=== PATIENT | female | born 1995 | race African-American/Black ===

== ENCOUNTER 2019-04-16 20:53 | Emergency (ER) | payer MEDICAID ==
[~2019-04-16] VITALS: Ht 149.9 cm; Wt 59.0 kg
[2019-04-16] MEDS ORDERED: SODIUM CHLORIDE 0.9% 1,000 ML IV ONE (21:42)
[2019-04-16] MEDS ORDERED: MORPHINE SULFATE 4 MG/ML CPJ (NOT FOR IM USE) IV STA (21:42)
[2019-04-16] MEDS ORDERED: ONDANSETRON HCL 4MG/2ML INJ IV STA (21:42)
[2019-04-16 23:31] VITALS: BP 145/78
[2019-04-17 00:33] LABS: BASOPHILS % 0.7 % (0.0-2.0); EOSINOPHILS % 2.8 % (0.0-5.0); HEMATOCRIT. 34.8 % (36.0-48.0); HEMOGLOBIN. 11.8 g/dL (12.0-16.0); LYMPHOCYTES % 27.2 % (20.0-50.0); MEAN CORPUSCULAR HEMOGLOBIN 33.2 pg (28.0-32.0); MEAN CORPUSCULAR VOLUME 98.1 fL (81.0-99.0); MEAN PLATELET VOLUME 8.4 fl (7.4-10.4); MONOCYTES % 9.4 % (2.0-8.0); NEUTROPHILS % 59.9 % (40.0-76.0); PLATELET 261 x1000/uL (130-400); RED BLOOD CELL COUNT 3.55 mill/uL (4.2-5.4); RED CELL DISTRIBUTION WIDTH 12.9 % (11.6-14.6)
[2019-04-17 00:34] LABS: CLARITY URINE CLEAR (CLEAR); COLOR URINE YELLOW (YELLOW); KETONES URINE NEGATIVE (NEGATIVE); LEUKOCYTE ESTERASE URINE 1+ (NEGATIVE); NITRITE URINE NEGATIVE (NEGATIVE); OCCULT BLOOD URINE NEGATIVE (NEGATIVE); PH URINE 6.5 (4.5-8.0); PROTEIN URINE NEGATIVE (NEGATIVE); SPECIFIC GRAVITY URINE 1.024 (1.005-1.030)
[2019-04-17 00:44] LABS: CHLORIDE 108 mEq/L (98-107)
[2019-04-17 00:49] LABS: ETHANOL BLOOD < 10 mg/dL
[2019-04-17 01:04] LABS: HCG SCREEN POSITIVE
[2019-04-17 01:08] LABS: B-HCG QUANTITATIVE 45988 mIU/mL (<3)
[2019-04-17 03:26] LABS: *AMPHETAMINES SCREEN URINE NEGATIVE (NEGATIVE); *BARBITURATES SCREEN URINE NEGATIVE (NEGATIVE); *BENZODIAZEPINES SCREEN URINE NEGATIVE (NEGATIVE); *COCAINE SCREEN URINE NEGATIVE (NEGATIVE); CANNABINOID URINE SCREEN NEGATIVE (NEGATIVE); METHADONE URINE SCREEN NEGATIVE (NEGATIVE); OPIATES URINE SCREEN NEGATIVE (NEGATIVE); PHENCYCLIDINE URINE SCREEN NEGATIVE (NEGATIVE)
== END 2019-04-17 01:30 | disposition home or self-care (01) ==
LOC: ER 20:53
DX: O20.0 Threatened abortion (principal); O26.891 Other specified pregnancy related conditions, first trimester; Z3A.01 Less than 8 weeks gestation of pregnancy; Z98.890 Other specified postprocedural states
CPT/HCPCS: 36415; 76801; 76817; 80053; 80305; 80320; 81003; 81025; 83690; 84702; 84703; 85025; 87077; 87086; 96361; 96374; 99284; J2405; J7030; Z7610; G0480

== ENCOUNTER 2024-04-24 21:08 | Emergency (ER) | payer MEDICAID ==
[~2024-04-24] VITALS: Ht 157.5 cm; Wt 68.0 kg
[2024-04-24 21:25] VITALS: O2SAT 99
[2024-04-25] MEDS ORDERED: MORPHINE SULFATE 4 MG/ML INJ (FOR IV/IM USE) IV STA (00:27)
[2024-04-25] MEDS ORDERED: METOCLOPRAMIDE HCL 10MG/2ML VIAL IV STA (00:27)
[2024-04-25] MEDS ORDERED: ONDANSETRON HCL 4MG/2ML INJ IV STA (00:27)
[2024-04-25] MEDS ORDERED: FAMOTIDINE 20MG/2ML VIAL IV STA (00:27)
[2024-04-25 00:53] LABS: CHLORIDE 105 mEq/L (98-107); POTASSIUM 3.8 mEq/L (3.5-5.1); SODIUM 140 mEq/L (136-145)
[2024-04-25 00:54] LABS: CALCIUM 10.1 mg/dL (8.7-10.4); CARBON DIOXIDE 26 mEq/L (21-32)
[2024-04-25 00:57] LABS: BASOPHILS % 0.3 % (0.0-2.0); DIFFERENTIAL COMMENT 0; EOSINOPHILS % 1.6 % (0.0-5.0); HEMOGLOBIN. 15.2 g/dL (12.0-16.0); LYMPHOCYTES % 23.7 % (20.0-50.0); MEAN CORPUSCULAR HEMOGLOBIN 34.6 pg (28.0-32.0); MEAN CORPUSCULAR HGB CONC 34.5 g/dL (31.0-37.0); MEAN CORPUSCULAR VOLUME 100.3 fL (81.0-99.0); MEAN PLATELET VOLUME 8.3 fl (7.4-10.4); MONOCYTES % 9.5 % (2.0-8.0); NEUTROPHILS % 64.9 % (40.0-76.0); PLATELET 293 x1000/uL (130-400); RED BLOOD CELL COUNT 4.39 mill/uL (4.2-5.4); RED CELL DISTRIBUTION WIDTH 12.7 % (11.6-14.6); WHITE BLOOD COUNT 8.8 x1000/uL (4.5-11.0)
[2024-04-25 00:59] LABS: CREATININE 0.8 mg/dL (0.6-1.0); GLUCOSE 88 mg/dL (70-105); UREA NITROGEN BLOOD 6 mg/dL (9-23)
[2024-04-25] MEDS: MORPHINE SULFATE 4 MG/ML INJ (FOR IV/IM USE) IV NR (05:01)
[2024-04-25] MEDS: ONDANSETRON HCL 4MG/2ML INJ IV NR (05:02)
[2024-04-25] MEDS: FAMOTIDINE 20MG/2ML VIAL IV NR (05:02)
[2024-04-25] MEDS: METOCLOPRAMIDE HCL 10MG/2ML VIAL IV NR (05:02)
[2024-04-25 06:30] VITALS: BP 99/55; PULSE 64; RESP 16; TEMP 98.2
== END 2024-04-25 06:30 | disposition home or self-care (01) ==
LOC: ER 21:08
DX: R10.9 Unspecified abdominal pain (principal); Z98.890 Other specified postprocedural states
CPT/HCPCS: 99285; 93005; 96374; 96375; 76705; 80048; 83690; 85025; 36415; J3490; J2765; J2405; J2270

== ENCOUNTER 2024-11-18 23:47 | Emergency (ER) | payer MEDICAID ==
[~2024-11-18] VITALS: Ht 149.9 cm; Wt 59.0 kg
[2024-11-18 23:55] VITALS: TEMP 37.1
[2024-11-19 00:22] LABS: CHLORIDE 108 mEq/L (98-107); POTASSIUM 3.7 mEq/L (3.5-5.1); SODIUM 141 mEq/L (136-145)
[2024-11-19 00:23] LABS: CALCIUM 9.5 mg/dL (8.7-10.4); CARBON DIOXIDE 26 mEq/L (21-32)
[2024-11-19 00:25] LABS: BASOPHILS % 0.6 % (0.0-2.0); EOSINOPHILS % 2.9 % (0.0-5.0); HEMATOCRIT. 36.8 % (36.0-48.0); HEMOGLOBIN. 12.4 g/dL (12.0-16.0); LYMPHOCYTES % 39.2 % (20.0-50.0); MEAN CORPUSCULAR HEMOGLOBIN 33.1 pg (28.0-32.0); MEAN CORPUSCULAR HGB CONC 33.6 g/dL (31.0-37.0); MEAN CORPUSCULAR VOLUME 98.6 fL (81.0-99.0); MEAN PLATELET VOLUME 8.1 fl (7.4-10.4); MONOCYTES % 8.7 % (2.0-8.0); NEUTROPHILS % 48.6 % (40.0-76.0); PLATELET 275 x1000/uL (130-400); RED BLOOD CELL COUNT 3.73 mill/uL (4.2-5.4); RED CELL DISTRIBUTION WIDTH 12.5 % (11.6-14.6); WHITE BLOOD COUNT 6.9 x1000/uL (4.5-11.0)
[2024-11-19 00:28] LABS: GLUCOSE 102 mg/dL (70-105); UREA NITROGEN BLOOD 11 mg/dL (9-23)
[2024-11-19 00:29] LABS: ALANINE AMINOTRANSFERASE 17 IU/L (10-49)
[2024-11-19 00:30] LABS: ALBUMIN 4.2 g/dL (3.2-4.8); ASPARTATE AMINOTRANSFERASE 18 IU/L (<34); BILIRUBIN DIRECT 0.2 mg/dL (<=3.0); BILIRUBIN TOTAL 0.7 mg/dL (0.1-1.0); PROTEIN TOTAL 7.2 g/dL (6.0-8.3)
[2024-11-19 01:29] LABS: HCG SCREEN NEGATIVE
[2024-11-19] MEDS: ACETAMINOPHEN 325MG TABLET PO ONE (02:06)
[2024-11-19] MEDS: ONDANSETRON HCL 4MG TABLET PO ONE (02:07)
[2024-11-19] MEDS ORDERED: HYDR28CR97 TP (03:31)
[2024-11-19 03:46] VITALS: BP 111/80; PULSE 83; RESP 16; O2SAT 98
== END 2024-11-19 03:47 | disposition home or self-care (01) ==
LOC: ER 23:47
DX: A08.4 Viral intestinal infection, unspecified (principal); Z98.890 Other specified postprocedural states
CPT/HCPCS: 99283; 80076; 80048; 84703; 83690; 85025; 36415; Q0162

== ENCOUNTER 2024-11-22 03:31 | Emergency (ER) | payer MEDICAID ==
[~2024-11-22] VITALS: Ht 167.6 cm; Wt 55.0 kg
[~2024-11-22 03:31] MED LIST: HYDR28CR97 TP
[2024-11-22 03:34] VITALS: O2SAT 99
[2024-11-22 04:27] LABS: BASOPHILS % 0.5 % (0.0-2.0); EOSINOPHILS % 1.9 % (0.0-5.0); HEMATOCRIT. 36.9 % (36.0-48.0); HEMOGLOBIN. 12.7 g/dL (12.0-16.0); LYMPHOCYTES % 28.5 % (20.0-50.0); MEAN CORPUSCULAR HEMOGLOBIN 34.1 pg (28.0-32.0); MEAN CORPUSCULAR HGB CONC 34.5 g/dL (31.0-37.0); MEAN PLATELET VOLUME 8.2 fl (7.4-10.4); MONOCYTES % 9.1 % (2.0-8.0); PLATELET 282 x1000/uL (130-400); RED BLOOD CELL COUNT 3.72 mill/uL (4.2-5.4); WHITE BLOOD COUNT 6.7 x1000/uL (4.5-11.0)
[2024-11-22 04:38] LABS: CHLORIDE 108 mEq/L (98-107); SODIUM 142 mEq/L (136-145)
[2024-11-22 04:39] LABS: CARBON DIOXIDE 27 mEq/L (21-32)
[2024-11-22 04:40] LABS: CALCIUM 9.7 mg/dL (8.7-10.4)
[2024-11-22 04:44] LABS: CREATININE 0.7 mg/dL (0.6-1.0)
[2024-11-22 04:45] LABS: GLUCOSE 106 mg/dL (70-105); UREA NITROGEN BLOOD 10 mg/dL (9-23)
[2024-11-22 04:46] LABS: ALANINE AMINOTRANSFERASE 18 IU/L (10-49); ASPARTATE AMINOTRANSFERASE 23 IU/L (<34)
[2024-11-22 04:47] LABS: ALBUMIN 4.6 g/dL (3.2-4.8); BILIRUBIN DIRECT 0.1 mg/dL (<=3.0); BILIRUBIN TOTAL 0.5 mg/dL (0.1-1.0); PROTEIN TOTAL 7.4 g/dL (6.0-8.3)
[2024-11-22 04:52] LABS: CLARITY URINE CLEAR (CLEAR); COLOR URINE YELLOW (YELLOW); GLUCOSE URINE NEGATIVE (NEGATIVE); KETONES URINE NEGATIVE (NEGATIVE); LEUKOCYTE ESTERASE URINE TRACE (NEGATIVE); NITRITE URINE NEGATIVE (NEGATIVE); OCCULT BLOOD URINE TRACE (NEGATIVE); PH URINE 6.5 (4.5-8.0); PROTEIN URINE NEGATIVE (NEGATIVE); SPECIFIC GRAVITY URINE 1.034 (1.005-1.030)
[2024-11-22 04:54] LABS: *AMPHETAMINES SCREEN URINE NEGATIVE (NEGATIVE); *BARBITURATES SCREEN URINE NEGATIVE (NEGATIVE); *BENZODIAZEPINES SCREEN URINE NEGATIVE (NEGATIVE); *COCAINE SCREEN URINE NEGATIVE (NEGATIVE); CANNABINOID URINE SCREEN NEGATIVE (NEGATIVE); ECSTASY MDMA SCREEN URINE NEGATIVE (NEGATIVE); METHADONE URINE SCREEN NEGATIVE (NEGATIVE); OPIATES URINE SCREEN NEGATIVE (NEGATIVE); PHENCYCLIDINE URINE SCREEN NEGATIVE (NEGATIVE)
[2024-11-22] MEDS: ONDANSETRON 4MG ODT PO ONE (04:57)
[2024-11-22] MEDS ORDERED: ACET-2708 MT (05:27)
[2024-11-22] MEDS ORDERED: ONDA-239 PO (05:27)
[2024-11-22 05:30] LABS: SQUAMOUS EPITHELIAL CELL URINE FEW /lpf (RARE/1+)
[2024-11-22 05:31] LABS: WBC URINE 0-2 /hpf (0-2)
[2024-11-22 05:32] LABS: BACTERIA URINE 1+
[2024-11-22 05:38] LABS: HCG SCREEN NEGATIVE
[2024-11-22 05:48] VITALS: BP 127/84; PULSE 72; RESP 17; TEMP 36.8; O2SAT 99
== END 2024-11-22 05:50 | disposition home or self-care (01) ==
LOC: ER 03:31
DX: R11.0 Nausea (principal); Z79.899 Other long term (current) drug therapy
CPT/HCPCS: 99283; 80076; 80305; 80048; 84703; 85025; 36415; 81003; Q0162

== ENCOUNTER 2024-12-23 21:26 | Emergency (ER) | payer MEDICAID, OTHER ==
[~2024-12-23] VITALS: Ht 149.9 cm; Wt 58.0 kg
[~2024-12-23 21:26] MED LIST changes: +ACET-2708 MT; +ONDA-239 PO
[2024-12-23 21:29] VITALS: BP 129/77; TEMP 36.8; O2SAT 100
[2024-12-23 21:34] VITALS: PULSE 95; RESP 20; O2SAT 100
[2024-12-23 22:10] LABS: BASOPHILS % 0.6 % (0.0-2.0); EOSINOPHILS % 2.8 % (0.0-5.0); LYMPHOCYTES % 35.8 % (20.0-50.0); MEAN CORPUSCULAR HEMOGLOBIN 32.8 pg (28.0-32.0); MEAN CORPUSCULAR HGB CONC 33.4 g/dL (31.0-37.0); MEAN CORPUSCULAR VOLUME 98.3 fL (81.0-99.0); MONOCYTES % 9.8 % (2.0-8.0); PLATELET 295 x1000/uL (130-400); RED BLOOD CELL COUNT 3.96 mill/uL (4.2-5.4); RED CELL DISTRIBUTION WIDTH 12.6 % (11.6-14.6); WHITE BLOOD COUNT 6.1 x1000/uL (4.5-11.0)
[2024-12-23 22:16] LABS: CLARITY URINE CLEAR (CLEAR); COLOR URINE DARK YELLOW (YELLOW); GLUCOSE URINE NEGATIVE (NEGATIVE); KETONES URINE 1+ (NEGATIVE); LEUKOCYTE ESTERASE URINE NEGATIVE (NEGATIVE); NITRITE URINE NEGATIVE (NEGATIVE); OCCULT BLOOD URINE TRACE (NEGATIVE); PROTEIN URINE TRACE (NEGATIVE); SPECIFIC GRAVITY URINE 1.034 (1.005-1.030)
[2024-12-23 22:23] LABS: CHLORIDE 108 mEq/L (98-107); POTASSIUM 3.9 mEq/L (3.5-5.1); SODIUM 144 mEq/L (136-145)
[2024-12-23 22:24] LABS: CALCIUM 9.8 mg/dL (8.7-10.4); CARBON DIOXIDE 28 mEq/L (21-32)
[2024-12-23 22:25] LABS: BACTERIA URINE TRACE; SQUAMOUS EPITHELIAL CELL URINE 1+ /lpf (RARE/1+); WBC URINE 0-2 /hpf (0-2)
[2024-12-23 22:29] LABS: CREATININE 0.7 mg/dL (0.6-1.0); GLUCOSE 86 mg/dL (70-105); UREA NITROGEN BLOOD 8 mg/dL (9-23)
[2024-12-23 22:32] LABS: HCG SCREEN NEGATIVE
[2024-12-23 22:37] LABS: TROPONIN I HIGH SENSITIVITY < 4 ng/L (3.0-34)
[2024-12-23 23:09] VITALS: TEMP 98.2
[2024-12-23] MEDS: ACETAMINOPHEN 500MG TABLET PO ONE (23:09)
[2024-12-23] MEDS: KETOROLAC 30MG/ML VIAL IM ONE (23:10)
== END 2024-12-23 23:35 | disposition home or self-care (01) ==
LOC: ER 21:26
DX: R07.89 Other chest pain (principal)
CPT/HCPCS: 99285; 71045; 80048; 81003; 81025; 84703; 85025; 85379; 84484; 36415; 93005; J1885

== ENCOUNTER 2025-01-16 11:32 | Emergency (ER) | payer MEDICAID, OTHER ==
[~2025-01-16] VITALS: Ht 167.6 cm; Wt 59.0 kg
[2025-01-16 11:37] VITALS: O2SAT 100
[2025-01-16 11:43] VITALS: BP 108/60; PULSE 82; RESP 18; TEMP 37; O2SAT 98
[2025-01-16 12:24] LABS: BASOPHILS % 0.3 % (0.0-2.0); EOSINOPHILS % 3.5 % (0.0-5.0); HEMATOCRIT. 37.5 % (36.0-48.0); HEMOGLOBIN. 12.6 g/dL (12.0-16.0); LYMPHOCYTES % 30.5 % (20.0-50.0); MEAN CORPUSCULAR HEMOGLOBIN 32.9 pg (28.0-32.0); MEAN CORPUSCULAR HGB CONC 33.5 g/dL (31.0-37.0); MEAN CORPUSCULAR VOLUME 98.1 fL (81.0-99.0); MEAN PLATELET VOLUME 8.3 fl (7.4-10.4); MONOCYTES % 8.9 % (2.0-8.0); NEUTROPHILS % 56.8 % (40.0-76.0); PLATELET 267 x1000/uL (130-400); RED BLOOD CELL COUNT 3.83 mill/uL (4.2-5.4); RED CELL DISTRIBUTION WIDTH 12.9 % (11.6-14.6); WHITE BLOOD COUNT 4.9 x1000/uL (4.5-11.0)
[2025-01-16 12:31] LABS: CHLORIDE 109 mEq/L (98-107); POTASSIUM 3.3 mEq/L (3.5-5.1); SODIUM 143 mEq/L (136-145)
[2025-01-16 12:32] LABS: CARBON DIOXIDE 28 mEq/L (21-32)
[2025-01-16 12:37] LABS: CREATININE 0.7 mg/dL (0.6-1.0); GLUCOSE 83 mg/dL (70-105); UREA NITROGEN BLOOD 8 mg/dL (9-23)
[2025-01-16 12:39] LABS: TROPONIN I HIGH SENSITIVITY < 4 ng/L (3.0-34)
== END 2025-01-16 12:26 ==
LOC: ER 11:32
DX: R07.89 Other chest pain (principal)
CPT/HCPCS: 36415; 71045; 80048; 81025; 84484; 85025; 93005; 99285

== ENCOUNTER 2025-02-05 23:55 | Emergency (ER) | payer MEDICAID ==
[~2025-02-05] VITALS: Ht 157.5 cm; Wt 65.8 kg
[2025-02-06 00:02] VITALS: O2SAT 98
[2025-02-06] MEDS: LORAZEPAM 0.5MG TABLET PO ONE (02:21)
[2025-02-06 03:25] LABS: *AMPHETAMINES SCREEN URINE NEGATIVE (NEGATIVE); *BARBITURATES SCREEN URINE NEGATIVE (NEGATIVE); *BENZODIAZEPINES SCREEN URINE NEGATIVE (NEGATIVE); *COCAINE SCREEN URINE NEGATIVE (NEGATIVE); CANNABINOID URINE SCREEN NEGATIVE (NEGATIVE); ECSTASY MDMA SCREEN URINE NEGATIVE (NEGATIVE); METHADONE URINE SCREEN NEGATIVE (NEGATIVE); OPIATES URINE SCREEN NEGATIVE (NEGATIVE); PHENCYCLIDINE URINE SCREEN NEGATIVE (NEGATIVE)
[2025-02-06 07:54] VITALS: BP 156/98; PULSE 100; RESP 14; TEMP 37.1; O2SAT 98
== END 2025-02-06 07:52 | disposition home or self-care (01) ==
LOC: ER 23:55
DX: F41.9 Anxiety disorder, unspecified (principal); R07.9 Chest pain, unspecified; Z79.899 Other long term (current) drug therapy
CPT/HCPCS: 71045; 80305; 81025; 93005; 99285

== ENCOUNTER 2025-05-24 02:01 | Inpatient (IN) | payer MEDICAID ==
[~2025-05-24] VITALS: Ht 149.9 cm; Wt 56.7 kg
[2025-05-24 02:04] VITALS: O2SAT 99
[2025-05-24] MEDS: LORAZEPAM 1MG TABLET PO ONE (02:55)
[2025-05-24 03:21] LABS: BASOPHILS % 0.2 % (0.0-2.0); EOSINOPHILS % 0.6 % (0.0-5.0); HEMATOCRIT. 41.1 % (36.0-48.0); HEMOGLOBIN. 13.9 g/dL (12.0-16.0); LYMPHOCYTES % 15.9 % (20.0-50.0); MEAN PLATELET VOLUME 8.2 fl (7.4-10.4); MONOCYTES % 7.0 % (2.0-8.0); NEUTROPHILS % 76.3 % (40.0-76.0); PLATELET 257 x1000/uL (130-400); RED BLOOD CELL COUNT 4.25 mill/uL (4.2-5.4); RED CELL DISTRIBUTION WIDTH 12.6 % (11.6-14.6)
[2025-05-24 03:36] LABS: CREATININE 0.8 mg/dL (0.6-1.0); UREA NITROGEN BLOOD 8 mg/dL (9-23)
[2025-05-24 03:37] LABS: ETHANOL BLOOD < 10 mg/dL (<10); TROPONIN I HIGH SENSITIVITY 22 ng/L (3.0-34)
[2025-05-24 03:38] LABS: ASPARTATE AMINOTRANSFERASE 18 IU/L (<34); BILIRUBIN DIRECT 0.3 mg/dL (<=3.0); BILIRUBIN TOTAL 1.0 mg/dL (0.1-1.0); PROTEIN TOTAL 7.6 g/dL (6.0-8.3)
[2025-05-24 03:39] LABS: HCG SCREEN NEGATIVE
[2025-05-24 04:02] LABS: *AMPHETAMINES SCREEN URINE NEGATIVE (NEGATIVE); *BARBITURATES SCREEN URINE NEGATIVE (NEGATIVE); *BENZODIAZEPINES SCREEN URINE NEGATIVE (NEGATIVE); *COCAINE SCREEN URINE NEGATIVE (NEGATIVE)
[2025-05-24 04:03] LABS: CANNABINOID URINE SCREEN NEGATIVE (NEGATIVE); ECSTASY MDMA SCREEN URINE NEGATIVE (NEGATIVE); METHADONE URINE SCREEN NEGATIVE (NEGATIVE); OPIATES URINE SCREEN NEGATIVE (NEGATIVE); PHENCYCLIDINE URINE SCREEN NEGATIVE (NEGATIVE)
[2025-05-24] MEDS ORDERED: POTASSIUM CHLORIDE 20MEQ TABLET SR PO ONE (04:15)
[2025-05-24 05:51] LABS: TROPONIN I HIGH SENSITIVITY 44 ng/L (3.0-34)
[2025-05-24] MEDS ORDERED: ASPIRIN 325MG TABLET PO ONE (06:00)
[2025-05-24] MEDS: POTASSIUM CHLORIDE 20MEQ TABLET SR PO SCH (09:22)
[2025-05-24] MEDS: ASPIRIN 325MG TABLET PO SCH (09:22)
[2025-05-24 15:02] VITALS: BP 115/70; PULSE 82; RESP 16; TEMP 36.696
[2025-05-24 16:00] VITALS: BP_SYST 120; BP_DIAS 56; BP_DIAS 66; PULSE 85; RESP 17; TEMP 36.7; O2SAT 99
[2025-05-24] MEDS ORDERED: METO-396 PO (16:10)
[2025-05-24] MEDS ORDERED: ONDANSETRON HCL 4MG/2ML INJ IV PRN (16:15)
[2025-05-24] MEDS: METOPROLOL SUCCINATE 25MG ER TABLET PO SCH (17:09)
[2025-05-24 20:07] VITALS: BP 114/68; PULSE 70; RESP 18; TEMP 36.7; O2SAT 98
[2025-05-24 20:54] LABS: LDL CHOLESTEROL 115.0 mg/dL (5-100); TRIGLYCERIDE 60.0 mg/dL (0-150)
[2025-05-24] MEDS: ATORVASTATIN CALCIUM 40MG TABLET PO SCH (20:55)
[2025-05-24 20:58] LABS: T4 FREE 1.26 ng/dL (0.89-1.76)
[2025-05-24 22:43] LABS: CLARITY URINE CLEAR (CLEAR); COLOR URINE DARK YELLOW (YELLOW); GLUCOSE URINE NEGATIVE (NEGATIVE); KETONES URINE 1+ (NEGATIVE); LEUKOCYTE ESTERASE URINE NEGATIVE (NEGATIVE); NITRITE URINE NEGATIVE (NEGATIVE); OCCULT BLOOD URINE NEGATIVE (NEGATIVE); PH URINE 6.5 (4.5-8.0); PROTEIN URINE TRACE (NEGATIVE); SPECIFIC GRAVITY URINE 1.030 (1.005-1.030); UROBILINOGEN URINE 1.0 E.U./dL (0.2-1.0)
[2025-05-24 22:54] LABS: BACTERIA URINE TRACE; RBC URINE NONE SEEN /hpf (0-2); SQUAMOUS EPITHELIAL CELL URINE FEW /lpf (RARE/1+); WBC URINE 0-2 /hpf (0-2)
[2025-05-24 22:57] LABS: *AMPHETAMINES SCREEN URINE NEGATIVE (NEGATIVE); *BARBITURATES SCREEN URINE NEGATIVE (NEGATIVE); *BENZODIAZEPINES SCREEN URINE NEGATIVE (NEGATIVE)
[2025-05-24 22:58] LABS: *COCAINE SCREEN URINE NEGATIVE (NEGATIVE); CANNABINOID URINE SCREEN NEGATIVE (NEGATIVE); ECSTASY MDMA SCREEN URINE NEGATIVE (NEGATIVE); METHADONE URINE SCREEN NEGATIVE (NEGATIVE); OPIATES URINE SCREEN NEGATIVE (NEGATIVE); PHENCYCLIDINE URINE SCREEN NEGATIVE (NEGATIVE)
[2025-05-25 00:04] VITALS: BP 112/74; PULSE 69; RESP 18; TEMP 36.8; O2SAT 98
[2025-05-25] MEDS: ACETAMINOPHEN 325MG TABLET PO PRN (01:20)
[2025-05-25 04:02] VITALS: BP 103/55; PULSE 68; RESP 17; TEMP 36.7; O2SAT 98
[2025-05-25 08:00] VITALS: BP 111/62; PULSE 65; RESP 16; TEMP 36.6; O2SAT 100
[2025-05-25 08:15] LABS: BASOPHILS % 0.5 % (0.0-2.0); EOSINOPHILS % 3.9 % (0.0-5.0); HEMATOCRIT. 38.2 % (36.0-48.0); HEMOGLOBIN. 12.9 g/dL (12.0-16.0); LYMPHOCYTES % 47.0 % (20.0-50.0); MEAN PLATELET VOLUME 8.4 fl (7.4-10.4); MONOCYTES % 11.0 % (2.0-8.0); NEUTROPHILS % 37.6 % (40.0-76.0); PLATELET 225 x1000/uL (130-400); RED BLOOD CELL COUNT 3.93 mill/uL (4.2-5.4); RED CELL DISTRIBUTION WIDTH 12.4 % (11.6-14.6)
[2025-05-25] MEDS: PANTOPRAZOLE SODIUM 40 MG/VIAL IV SCH (08:22)
[2025-05-25] MEDS: ASPIRIN 81MG TABLET PO SCH (08:22)
[2025-05-25 08:30] LABS: CREATININE 0.7 mg/dL (0.6-1.0); UREA NITROGEN BLOOD 8 mg/dL (9-23)
[2025-05-25] MEDS ORDERED: TRAZODONE HCL 50MG TABLET PO PRN (11:45)
[2025-05-25 12:00] VITALS: BP_SYST 100; BP_DIAS 62; BP_DIAS 69; PULSE 68; RESP 18; TEMP 36.7; O2SAT 99
[2025-05-25 15:52] VITALS: BP 109/66; PULSE 76; RESP 16; TEMP 36.6; O2SAT 100
[2025-05-25 20:04] VITALS: BP 105/51; PULSE 79; RESP 18; TEMP 37.4; O2SAT 98
[2025-05-26 00:02] VITALS: BP 113/63; PULSE 65; RESP 18; TEMP 36.8; O2SAT 98
[2025-05-26 04:01] VITALS: BP 116/60; PULSE 82; RESP 17; TEMP 36.7; O2SAT 98
[2025-05-26 08:14] VITALS: BP 110/65; PULSE 72; RESP 16; TEMP 36.5; O2SAT 100
[2025-05-26] MEDS: SERTRALINE HCL 25MG TABLET PO SCH (08:20)
[2025-05-26 10:13] LABS: TROPONIN I HIGH SENSITIVITY < 4 ng/L (3.0-34)
[2025-05-26 12:00] VITALS: BP 115/62; PULSE 80; RESP 18; TEMP 36.7; O2SAT 98
[2025-05-26 16:00] VITALS: BP 109/68; PULSE 78; RESP 18; TEMP 36.6; O2SAT 99
[2025-05-26] MEDS ORDERED: METO-396 PO (16:46)
[2025-05-26 20:00] VITALS: BP 101/60; PULSE 67; RESP 17; TEMP 36.4; O2SAT 98
[2025-05-27] VITALS: BP 114/67; PULSE 72; RESP 17; TEMP 37; O2SAT 99
[2025-05-27 04:00] VITALS: BP 106/56; PULSE 72; RESP 18; TEMP 36.5; O2SAT 99
[2025-05-27 08:00] VITALS: BP 107/53; PULSE 68; RESP 20; TEMP 36.7; O2SAT 100
[2025-05-27 10:57] VITALS: BP 107/53; PULSE 70; RESP 20; TEMP 98
== END 2025-05-27 12:55 | disposition home or self-care (01) | DRG 756 ==
LOC: ER 02:01 → 8WST 13:25 → EDBEDREQ 13:30 → EDBEDREQTM 13:30 → ENRESERV 13:43
PROVIDERS: ADMIT Internal Medicine; ATTEND Internal Medicine
PROC: GZ56ZZZ Individual Psychotherapy, Supportive (ICD-10-PCS; principal; 2025-05-26)
DX: F41.1 Generalized anxiety disorder (principal); F32.1 Major depressive disorder, single episode, moderate; R45.851 Suicidal ideations; Z91.199 Patient's noncompliance with other medical treatment and regimen due to unspecified reason; R00.2 Palpitations; F43.10 Post-traumatic stress disorder, unspecified
CPT/HCPCS: 36415; 71045; 80048; 80061; 80076; 80305; 80307; 80320; 80329; 81003; 83036; 84439; 84443; 84484; 84703; 85025; 93005; 99291; A4606; J2470; G0480